=== PATIENT | male | born 1940 | race Caucasian/White ===

== ENCOUNTER 2021-04-29 19:49 | Emergency (ER) | payer OTHER ==
[2021-04-29 20:09] LABS: BASOPHIL 0.3 % (0-2); EOSINOPHIL 0.1 % (0-7); HCT 42.1 % (42.0-52.0); HGB 13.5 g/dl (13.2-18.0); MCH 27.2 pg (25.0-31.0); MCHC 32.1 g/dL (32.0-36.0); MCV 84.7 fL (78.0-100.0); MONOCYTE 5.7 % (0-12); MPV 10.9 fL (6.0-9.5); NEUTROPHIL 83.6 % (41-80); NRBC 0.2; PLT 231 K/uL (150-400); RBC 4.97 M/uL (4.70-6.00); RDW 13.3 % (11.5-14.0); WBC 17.5 K/uL (4.0-10.5)
[2021-04-29 20:30] LABS: LACTIC ACID 4.1 mmol/L (0.4-1.9)
[2021-04-29 20:36] LABS: ALBUMIN 2.1 g/dL (3.4-5.0); ALKALINE PHOSHATASE 68 U/L (46-116); ALT 47 U/L (16-63); AST 234 U/L (15-37); BILIRUBIN - TOTAL 0.6 mg/dL (0.2-1.0); BUN 35 mg/dL (7-18); BUN/CREAT RATIO (CALC) 22.4 RATIO; CHLORIDE 102 mmol/L (98-107); CO2 (BICARBONATE) 18 mmol/L (21-32); CREATININE 1.56 mg/dL (0.67-1.17); GLOBULIN (CALCULATION) 4.8 g/dL; GLUCOSE 280 mg/dL (74-106); POTASSIUM 5.2 mmol/L (3.5-5.1); TOTAL PROTEIN 6.9 g/dL (6.4-8.2)
[2021-04-29 20:49] LABS: INR 1.49 (0.9-1.2); PROTHROMBIN TIME 17.3 SECONDS (11.8-13.4); PTT 28.7 SECONDS (24.4-34.7)
[2021-04-29 20:56] LABS: INFLUENZA A NAA NEGATIVE (NEGATIVE)
[2021-04-29 21:04] LABS: CORONAVIRUS 2019 SARS-COV-2 POSITIVE (NEGATIVE)
[2021-04-30 02:01] LABS: BILIRUBIN NEGATIVE (NEGATIVE); BLOOD 3+ Ery/uL (NEGATIVE); COLOR YELLOW (YELLOW); GLUCOSE (U) 1+ mg/dL (NORMAL); LEUKOCYTES NEGATIVE Leu/uL (NEGATIVE); NITRITE NEGATIVE (NEGATIVE); PROTEIN 1+ mg/dL (NEGATIVE); SPECIFIC GRAVITY 1.025 (1.001-1.030); UROBILINOGEN 0.2 mg/dL (0.2-1.0)
[2021-04-30 02:03] LABS: CLARITY SLIGHTLY HAZY (CLEAR)
[2021-04-30 02:09] LABS: AMORPHOUS URATES CRYSTALS MODERATE; BACTERIA TRACE; URINARY RBC RARE; URINARY WBC RARE
[2021-04-30 03:22] LABS: INR 1.49 (0.9-1.2); PROTHROMBIN TIME 17.3 SECONDS (11.8-13.4)
[2021-04-30 03:23] LABS: PTT 55.8 SECONDS (24.4-34.7)
== END 2021-04-30 05:48 ==
LOC: FER 19:49
PROVIDERS: Internal Medicine
DX: U07.1 COVID-19 (principal); J12.82 Pneumonia due to coronavirus disease 2019; J96.01 Acute respiratory failure with hypoxia; A41.9 Sepsis, unspecified organism; R65.20 Severe sepsis without septic shock; I21.4 Non-ST elevation (NSTEMI) myocardial infarction; J44.9 Chronic obstructive pulmonary disease, unspecified; E11.9 Type 2 diabetes mellitus without complications; I10 Essential (primary) hypertension; Z23 Encounter for immunization
CPT/HCPCS: 36415; 36600; 71045; 80053; 81001; 82803; 83605; 83690; 83880; 84145; 84484; 85025; 85610; 85730; 87040; 87205; 93005; 94640; C9113; C9399; J1100; J1644; J2543; J7030; J7050; U0002